=== PATIENT | female | born 1980 | race Caucasian/White ===

== ENCOUNTER 2019-07-09 09:40 | Outpatient (CLI) | payer BC, SELFPAY ==
--- NOTE | 2019-07-09 | MM_ITS ---
WS: [id number] BILATERAL DIGITAL SCREENING MAMMOGRAPHY WITH CAD CLINICAL INFORMATION: SCREENING HISTORY: Screening mammogram. No current complaints. COMPARISON: None. TECHNIQUE: Bilateral CC and MLO views. FINDINGS: The breasts are composed of heterogeneous fibroglandular density tissue, which can limit the detectio n of small underlying mass lesions. No suspicious mass, asymmetry, calcifications, or architectural d istortion. No evidence of malignancy. MM/[id number] IMPRESSION: BI-RADS: 2-Benign FOLLOW UP: 1 Year Follow-up Recommend return to annual screening mammography.
== END 2019-07-09 09:41 | disposition home or self-care (01) ==
LOC: RADSHAW 09:46
PROVIDERS: Family Provider Nurse Practitioner Family; Visit Provider Obstetrics & Gynecology
DX: Z12.31 Encounter for screening mammogram for malignant neoplasm of breast (principal)
CPT/HCPCS: 77067

== ENCOUNTER 2021-10-26 08:19 | Outpatient (CLI) | payer BC, SELFPAY ==
--- NOTE | 2021-10-26 08:27 | MM_ITS ---
WS: [id number] SCREENING 3D TOMOSYNTHESIS DIGITAL MAMMOGRAM WITH CAD HISTORY: SCREENING COMPARISON: 07/09/2019 Bilateral CC and MLO views submitted. Computer aided detection analyzed. Breast composition: The breasts are heterogeneously dense, which may obscure small masses. Small clus ter of calcifications upper outer quadrant LEFT breast at 1:00. Calcifications have increased in numb er since the prior study. No distortion. RIGHT breast is negative. MM/[id number] IMPRESSION: BI-RADS: 0-Incomplete: Need additional imaging evaluation FOLLOW UP: Need Additional Imaging LEFT BREAST: Magnification views of suspicious calcification CC and MLO. Marcial Kelly
== END 2021-10-26 08:20 | disposition home or self-care (01) ==
LOC: RADSHAW 08:21
PROVIDERS: Visit Provider Obstetrics & Gynecology
DX: Z12.31 Encounter for screening mammogram for malignant neoplasm of breast (principal)
CPT/HCPCS: 77063; 77067

== ENCOUNTER 2021-12-10 08:43 | Outpatient (CLI) | payer BC, SELFPAY ==
--- NOTE | 2021-12-10 08:52 | MM_ITS ---
WS: [id number] ADDITIONAL VIEWS LEFT MAMMOGRAM WITH DIGITAL BREAST TOMOSYNTHESIS. HISTORY: Calcifications screening mammogram LEFT breast. COMPARISON: 10/26/2021, 07/09/2019 Magnification views LEFT breast in CC, MLO projections and true ML submitted with digital breast jah synthesis and SM. Calcifications become less clustered on the additional magnification views. There are a few calcifica tions which may be milk of calcium as they are very hazy and ill-defined on the CC projection. There is no tight cluster of calcifications. There are a few adjacent calcifications. No mass or distortion . MM/[id number] IMPRESSION: BI-RADS: 3-Probably Benign FOLLOW UP: 6 Month Follow-up Diagnostic LEFT breast follow-up in 6 months with magnification views.
== END 2021-12-10 08:44 | disposition home or self-care (01) ==
PROVIDERS: Visit Provider Obstetrics & Gynecology
DX: R92.8 Other abnormal and inconclusive findings on diagnostic imaging of breast (principal)
CPT/HCPCS: 77061

== ENCOUNTER 2022-06-12 08:48 | Outpatient (CLI) | payer BC, SELFPAY ==
--- NOTE | 2022-06-12 09:06 | MM_ITS ---
WS: [id number] DIAGNOSTIC LEFT DIGITAL TOMOSYNTHESIS MAMMOGRAPHY WITH CAD. HISTORY: Follow-up calcifications. COMPARISON: 12/10/2021, 10/26/2021 and 07/09/2019 Technique: CC, MLO and ML views. Magnification views CC and MLO. Breast composition: There are scattered areas of fibroglandular density. No change in the group of c alcifications towards the upper outer quadrant. On the MLO projection there is a teacuping of these calcifications suggesting milk of calcium. No new or increasing number of calcifications. No adjacent soft tissue mass. MM/[id number] IMPRESSION: BI-RADS: 3-Probably Benign FOLLOW UP: 6 Month Follow-up Patient to return in December 2022 for bilateral mammogram. Additional magnificatio n views of these LEFT breast calcifications can be performed at that time to do cument long-term stability.
== END 2022-06-12 08:49 | disposition home or self-care (01) ==
PROVIDERS: Visit Provider Obstetrics & Gynecology
DX: R92.1 Mammographic calcification found on diagnostic imaging of breast (principal)
CPT/HCPCS: 77061; G0279

== ENCOUNTER 2022-12-10 10:04 | Outpatient (CLI) | payer BC, SELFPAY ==
--- NOTE | 2022-12-10 10:11 | MM_ITS ---
WS: [id number] DIAGNOSTIC BILATERAL DIGITAL BREAST TOMOSYNTHESIS MAMMOGRAPHY WITH CAD HISTORY: Follow-up calcifications LEFT breast. COMPARISON: 06/12/2022, 12/10/2021, 10/26/2021, TECHNIQUE: Bilateral craniocaudad, mediolateral oblique, and mediolateral views are submitted with to mosynthesis and SM. Magnification LEFT CC and MLO. Computer aided detection utilized. Breast composition: The breasts are heterogeneously dense, which may obscure small masses. No obvious change in the calcifications in the upper outer quadrant of the LEFT breast at a posterior depth. RI GHT breast is negative. MM/[id number] IMPRESSION: BI-RADS: 3-Probably Benign FOLLOW UP: 6 Month Follow-up Additional 6 month follow-up LEFT breast with magnification views. Continued im aging to demonstrate long-term stability of breast calcifications is necessary .
== END 2022-12-10 10:05 | disposition home or self-care (01) ==
LOC: RAD 10:07
PROVIDERS: PCP Obstetrics & Gynecology; Visit Provider Obstetrics & Gynecology
DX: R92.1 Mammographic calcification found on diagnostic imaging of breast (principal)
CPT/HCPCS: 77062; G0279